=== PATIENT | male | born 1955 | race Caucasian/White ===

== ENCOUNTER 2020-11-05 15:39 | Emergency (ER) | payer OTHER, SELFPAY ==
[2020-11-05] VITALS (32 sets, daily range): BP systolic 122–143; BP diastolic 72–100; PULSE 63–82; RESP 14–28; TEMP 36.8; O2SAT 92–97
--- NOTE | ~2020-11-05 | CT_ITS ---
EXAMINATION: CTA chest PE protocol DATE: 11/05/2020 17:46 INDICATION: Chest pain and shortness of breath, COVID 19 positive TECHNIQUE: Computed tomography angiography (CTA) of the chest was performed with 100 mL Omnipaque-350 intravenous contrast timed to evaluate the pulmonary arteries. Coronal maximum intensity projection 3D-reconstructions were created by the technologist. The dose-length product (DLP) was 733.02 mGy-cm. Automated exposure control and iterative reconstruction technique were employed. COMPARISON: None. FINDINGS: The pulmonary arteries are well-opacified. No pulmonary embolism is identified. There are d iffuse groundglass opacities involving all lobes of the lungs. The heart size is normal. There is marcus ateral hilar and mediastinal lymphadenopathy. No pleural effusion or pneumothorax is identified. Ther e is moderate thoracic spondylosis. Cysts of the partially imaged kidneys measure up to 5.3 cm on the left. IMPRESSION: 1. No pulmonary embolism. 2. Widespread groundglass opacities involving all lobes of the lungs, most consistent with COVID 19 p neumonia. 3. Mediastinal and bilateral hilar lymphadenopathy, likely reactive. Reviewed, dictated and finalized at location A. [employer] IMPRESSION: 1. No pulmonary embolism. 2. Widespread groundglass opacities involving all lobes of the lungs, most cons istent with COVID 19 pneumonia. 3. Mediastinal and bilateral hilar lymphadenopathy, likely reactive.
[2020-11-05] MEDS: KETOROLAC 30 MG/ML VIAL (*BKC) IV PUSH (16:21)
[2020-11-05 16:45] LABS: Basophils Percent Auto 0.2 % (0.2-1.2); Eosinophils Percent Auto 0.5 % (0-4.4); Hematocrit 42.8 % (42.0-52.0); Hemoglobin 14.6 g/dL (14.0-18.0); Immature Granulocyte Absolute 0.04 K/mm3 (0.00-0.031); Immature Granulocyte Percent A 0.7 % (0-0.5); Lymphocytes Absolute Auto 0.88 K/mm3 (0.9-3.2); Lymphocytes Percent Auto 14.5 % (18.3-44.2); Mean Corpuscular HGB Conc 34.1 g/dl (32-36); Mean Corpuscular Hemoglobin 26.8 pg (26-34); Mean Corpuscular Volume 78.5 fl (80-100); Mean Platelet Volume 9.2 fl (7.4-10.4); Monocytes Absolute Auto 0.4 K/mm3 (0.1-0.6); Monocytes Percent Auto 6.4 % (2.6-8.5); Neutrophils Absolute Auto 4.7 K/mm3 (1.3-6.7); Neutrophils Percent Auto 77.7 % (45.5-73.1); Platelet Count Result 279 k/mm3 (150-375); Red Blood Count 5.45 M/mm3 (4.6-6.20); Red Cell Distribution Width 14.1 % (11.5-14.5); White Blood Count 6.1 K/mm3 (4.5-10.0)
[2020-11-05 17:01] LABS: Anion Gap 10 mmol/L (8-16); Blood Urea Nitrogen 13 mg/dL (9-20); Calcium 8.5 mg/dL (8.4-10.2); Carbon Dioxide 31 mmol/L (22-30); Chloride 95 mmol/L (98-107); Estimated CRCL calculation 93 ml/min; Estimated Glomerular Filt Rate > 60; Glucose 134 mg/dL (75-110); Potassium 2.7 mmol/L (3.4-5.0); Sodium 136 mmol/L (137-145)
[2020-11-05] MEDS: POTASSIUM CHLORIDE 20 MEQ PACKET (FOR LIQUID) 40 MEQ PO (17:22)
--- NOTE | 2020-11-05 18:25 | PC.NURSE ---
PT AMBULATED AND MAINTAINED O2 SATURATION OF 95-94%. EDP NOTIFIED.
--- NOTE | 2020-11-05 18:48 | ED.GENADULT ---
HPI - General Adult General Chief complaint: Shortness of Breath/Dyspnea Stated complaint: covid +, chest pain Time Seen by Provider: 11/05/20 15:50 History of Present Illness HPI narrative: Patient is a 64-year-old male who presents to the ER with complains of anterior chest pain intermittent and worsening over the last 2 days. He been seen for similar symptoms on 11/01/2020 at [facility]. At that time he was diagnosed with a Covid pneumonia and given an albuterol inhaler. He has been using this at home but does not help his discomfort. He does report he had coughed up some blood-tinged sputum today. He is not having fevers or chills. He is not particularly short of breath just has frequent cough and chest discomfort. Related Data Allergies Allergy/AdvReac Type Severity Reaction Status Date / Time lisinopril Allergy Unknown RASH Unverified 07/18/15 08:33 poison rigoberto extract Allergy Unknown Rash Verified 10/31/15 08:25 Review of Systems Review of Systems: All systems reviewed & are unremarkable except as noted in HPI and below Constitutional: Constitutional: Denies chills, Denies fever(s) and Denies weakness ENT: Denies nasal congestion and Denies sore throat Cardiovascular: Cardiovascular: Reports chest pain, Denies rapid heart rate and Denies radiating jaw, neck or arm pain Respiratory: Respiratory: Reports cough, Denies dyspnea and Denies wheezing Comments: Hemoptysis Gastrointestinal: Gastrointestinal: Denies abdominal pain, Denies nausea and Denies vomiting Musculoskeletal: Musculoskeletal: Denies back pain and Denies muscle cramps PMFSH Past Medical History Medical History (Updated 11/05/20 @ 19:40 by Tani Chakraborty MD) BPH (benign prostatic hyperplasia) Hypertension Surgical History Surgical History (Updated 11/05/20 @ 18:54 by Tani Chakraborty MD) Hx of tonsillectomy Social History Social History (Updated 11/05/20 @ 18:54 by Tani Chakraborty MD) Smoking status: Never smoker Exam Narrative: Exam Narrative: GENERAL: Well-appearing, well-nourished, and in no acute distress. HEAD: Normocephalic, atraumatic. CHEST: Clear to auscultation. No respiratory distress. HEART: Regular rate and rhythm. Normal peripheral pulses. EXTREMITIES: Normal range of motion. No edema. SKIN: Warm, dry, no rash. NEURO: Alert and oriented x3. PSYCH: Normal mood and affect. Course Course Emergency Course: Patient reports symptoms resolved after Toradol. He is also taken the potassium supplementation. Informed of his results. He has been ambulatory without any hypoxia. He is in no distress. Will attempt to contact his PCP. Reevaluation(s) Reevaluation #1: Discussed with Dr. Dietrich the patients PCP. WIll repeat K+ outpatient. D/c Date: 11/05/20 Time: 19:38 Vital Signs Vital signs: Vital Signs Temperature 98.2 F 11/05/20 15:49 Pulse Rate 70 11/05/20 15:49 Respiratory Rate 18 11/05/20 15:49 Blood Pressure 143/77 H 11/05/20 15:49 Pulse Oximetry 94 11/05/20 15:49 Temperature 98.2 F 11/05/20 15:49 Pulse Rate 68 11/05/20 19:15 Respiratory Rate 20 11/05/20 19:15 Blood Pressure 128/86 11/05/20 19:01 Pulse Oximetry 92 11/05/20 19:15 Medical Decision Making Vital Signs Vital Signs: Vital Signs Temperature 98.2 F 11/05/20 15:49 Pulse Rate 70 11/05/20 15:49 Respiratory Rate 18 11/05/20 15:49 Blood Pressure 143/77 H 11/05/20 15:49 Pulse Oximetry 94 11/05/20 15:49 Temperature 98.2 F 11/05/20 15:49 Pulse Rate 68 11/05/20 19:15 Respiratory Rate 20 11/05/20 19:15 Blood Pressure 128/86 11/05/20 19:01 Pulse Oximetry 92 11/05/20 19:15 Lab Data Result diagrams: 11/05/20 16:34 11/05/20 16:34 Labs: Lab Results 11/05/20 11/05/20 Range/Units 16:34 16:34 WBC 6.1 (4.5-10.0) K/mm3 RBC 5.45 (4.6-6.20) M/mm3 Hgb 14.6 (14.0-18.0) g/dL Hct 42.8 (42.0-52.0) % MCV 78.5 L (80-100) fl MCH 26.8
== END 2020-11-05 20:48 | disposition home or self-care (01) ==
PROVIDERS: Emergency Provider Emergency Medicine
DX: U07.1 COVID-19 (principal); J12.89 Other viral pneumonia; E87.6 Hypokalemia; N40.0 Benign prostatic hyperplasia without lower urinary tract symptoms; I10 Essential (primary) hypertension
CPT/HCPCS: 36415; 71275; 80048; 85025; 96374; 99284; A9270; J1885; Q9967

== ENCOUNTER 2020-11-17 10:42 | Emergency (ER) | payer OTHER, SELFPAY ==
[2020-11-17] VITALS (22 sets, daily range): BP systolic 141–162; BP diastolic 84–102; PULSE 77–95; RESP 16–23; TEMP 37.1; O2SAT 93–99
--- NOTE | ~2020-11-17 | XR_ITS ---
EXAMINATION: XR chest 1V portable EXAM DATE: 11/17/2020 11:26 INDICATION: Chest pain, cough and shortness of breath. TECHNIQUE: Portable AP frontal chest x-ray was obtained. Correlation is made to director business systems image from pul onary CT 11/05/2020. FINDINGS: There is moderate amount of patchy bilateral ill-defined airspace disease consistent with C OVID pneumonia. Probably more confluence compared to 11/05. No pneumothorax or pleural effusion. Card iomediastinal silhouette is normal. There are no osseous abnormalities identified. IMPRESSION: Moderate amount of bilateral COVID pneumonia. Reviewed, dictated and finalized at location B. GER MANAGEMENT
--- NOTE | 2020-11-17 10:54 | ECG_ITS ---
Measurements Intervals [place] Rate: 89 P: 38 MT: 155 QRS: -26 QRSD: 99 T: 26 QT: 363 QTc: 443 Interpretive Statements SINUS RHYTHM INCOMPLETE RIGHT BUNDLE BRANCH BLOCK VOLTAGE CRITERIA FOR LVH BORDERLINE R WAVE PROGRESSION, ANTERIOR LEADS BORDERLINE T WAVE ABNORMALITY- INF/HIGH LAT LEADS BASELINE ARTIFACT- I, III BORDERLINE ECG Electronically Signed On 11-17-2020 12:17:09 [employer] by Raudel Santamaria D.O.
[2020-11-17 11:03] LABS: Basophils Percent Auto 0.4 % (0.2-1.2); Eosinophils Absolute Auto 0.1 K/mm3 (0-0.3); Hematocrit 38.9 % (42.0-52.0); Hemoglobin 12.7 g/dL (14.0-18.0); Immature Granulocyte Absolute 0.04 K/mm3 (0.00-0.031); Immature Granulocyte Percent A 0.4 % (0-0.5); Lymphocytes Absolute Auto 1.07 K/mm3 (0.9-3.2); Lymphocytes Percent Auto 10.6 % (18.3-44.2); Mean Corpuscular HGB Conc 32.6 g/dl (32-36); Mean Corpuscular Hemoglobin 26.7 pg (26-34); Mean Corpuscular Volume 81.7 fl (80-100); Mean Platelet Volume 8.6 fl (7.4-10.4); Monocytes Percent Auto 9.4 % (2.6-8.5); Neutrophils Absolute Auto 7.9 K/mm3 (1.3-6.7); Neutrophils Percent Auto 78.2 % (45.5-73.1); Platelet Count Result 309 k/mm3 (150-375); Red Blood Count 4.76 M/mm3 (4.6-6.20); Red Cell Distribution Width 14.3 % (11.5-14.5); White Blood Count 10.1 K/mm3 (4.5-10.0)
--- NOTE | 2020-11-17 11:08 | ED.CHESTPAIN ---
HPI - Chest Pain General Chief Complaint: Chest Pain Stated Complaint: Feels tightness in chest Time Seen by Provider: 11/17/20 11:07 History of Present Illness HPI narrative: 65 yo male w/ h/o BPH presents to the ED for SOB and chest pressure. He has been feeling sick since before new years. He was having fever, cough, SOB, nausea. He tested positive for COVID-19 and was subsequently seen in the ED on 11/05/2020. At that time he had a CTA of the chest showing no PE, but COVID pneumonia. HE also had low potassium. He was given KCL and naproxen and was feeling better, but now feels that his symptoms have returned. Related Data Allergies Allergy/AdvReac Type Severity Reaction Status Date / Time lisinopril Allergy Unknown RASH Verified 11/17/20 11:25 poison rigoberto extract Allergy Unknown Rash Verified 10/31/15 08:25 Review of Systems Review of Systems: All systems reviewed & are unremarkable except as noted in HPI and below Constitutional: Constitutional: Denies fever(s) ENT: Denies sore throat Cardiovascular: Cardiovascular: Reports chest pain Respiratory: Respiratory: Reports chest congestion, Reports cough and Reports dyspnea Gastrointestinal: Gastrointestinal: Denies abdominal pain and Denies nausea Neurologic: Denies confusion, Denies dizziness and Denies weakness [facility] Past Medical History Medical History BPH (benign prostatic hyperplasia) Hypertension Surgical History Surgical History Hx of tonsillectomy Social History Social History Smoking status: Never smoker Exam Const: General: healthy appearing, no acute distress and alert Orientation/consciousness: patient oriented x3 HENMT: Head: normal to inspection Neck: Neck: normal visual inspection and no lymphadenopathy Chest: Chest palpation & inspection: no tenderness Resp: Effort & Inspection: normal respiratory effort Auscultation: crackles bilateral in the lower lung [place], no rales, no rhonchi and no wheezes Cardio: Jugular venous distension: no JVD Rate: regular rate Rhythm: regular rhythm Heart sounds: no murmurs GI: Inspection: non-distended GI Palp: Yes Soft to palpation and No Tenderness to palpation present (GI) Skin: General skin exam: normal color Neuro: General: patient oriented x3 and moves all extremities Speech: normal speech Extrem: General: no edema Psych: Appearance: well kempt Affect: normal affect Course Vital Signs Vital signs: Vital Signs Temperature 37.1 C 11/17/20 10:47 Pulse Rate 88 11/17/20 10:47 Respiratory Rate 20 11/17/20 10:47 Blood Pressure 162/102 H 11/17/20 10:47 Pulse Oximetry 99 11/17/20 10:47 Temperature 37.1 C 11/17/20 10:47 Pulse Rate 81 11/17/20 13:16 Respiratory Rate 22 H 11/17/20 13:16 Blood Pressure 145/84 H 11/17/20 13:16 Pulse Oximetry 94 11/17/20 13:16 MDM - Chest Pain MDM Narrative Medical decision making narrative: Oxygenating well. Feeling improved after neb treatment. I will start him on dexamethasone to see if he gets some benefit from that . DDx: Pneumonia, PE, ACS Medical Records Data Attestation: I reviewed the patient's medical records. Lab Data Attestation: I reviewed the patient's lab results. Result diagrams: 11/17/20 10:56 11/17/20 10:56 Labs: Lab Results 11/17/20 11/17/20 11/17/20 Range/Units 10:56 10:56 10:56 WBC 10.1 H (4.5-10.0) K/mm3 RBC 4.76 (4.6-6.20) M/mm3 Hgb 12.7 L (14.0-18.0) g/dL Hct 38.9 L (42.0-52.0) % MCV 81.7 (80-100) fl MCH 26.7 (26-34) pg MCHC 32.6 (32-36) g/dl RDW 14.3 (11.5-14.5) % Plt Count 309 (150-375) k/mm3 MPV 8.6 (7.4-10.4) fl Immature Gran % (Auto) 0.4 (0-0.5) % Neut % (Auto) 78.2 H (45.5-73.1) % Lymph % (Auto) 10.6 L (18.3-44.2) %
[2020-11-17 11:15] LABS: Anion Gap 6 mmol/L (8-16); Blood Urea Nitrogen 18 mg/dL (9-20); Calcium 8.5 mg/dL (8.4-10.2); Carbon Dioxide 27 mmol/L (22-30); Chloride 102 mmol/L (98-107); Estimated CRCL calculation 82 ml/min; Estimated Glomerular Filt Rate > 60; Glucose 156 mg/dL (75-110); INR 1.1; Potassium 3.9 mmol/L (3.4-5.0); Prothrombin Time 14.5 Seconds (11.1-14.7); Sodium 135 mmol/L (137-145)
[2020-11-17 11:16] LABS: Partial Thromboplastin Time 32.5 SECONDS (22.3-36.8)
[2020-11-17 11:27] LABS: Troponin I < 0.012 ng/mL (0.000-0.034)
[2020-11-17] MEDS: ASPIRIN 81 MG CHEWABLE TABLET 324 MG PO (11:42)
[2020-11-17] MEDS: IPRATROPIUM BR 0.02% INH SOLN 0.5 MG/2.5 ML VIAL INHALATION (11:59)
[2020-11-17] MEDS: ALBUTEROL SULFATE NEB 2.5 MG/0.5 ML INH 5 MG INHALATION (11:59)
== END 2020-11-17 13:32 | disposition home or self-care (01) ==
PROVIDERS: Emergency Medicine; Emergency Provider Emergency Medicine; PCP Family Medicine
DX: U07.1 COVID-19 (principal); J12.82 Pneumonia due to coronavirus disease 2019; I10 Essential (primary) hypertension; N40.0 Benign prostatic hyperplasia without lower urinary tract symptoms
CPT/HCPCS: 36415; 71045; 80048; 84484; 85025; 85610; 85730; 93005; 94640; 96374; 99284; A9270; J1100

== ENCOUNTER 2021-03-02 17:37 | Emergency (ER) | payer OTHER, SELFPAY ==
--- NOTE | ~2021-03-02 | CT_ITS ---
EXAMINATION: CT abdomen pelvis w con DATE: 03/02/2021 19:11 INDICATION: Right-sided abdominal pain TECHNIQUE: Computed tomography (CT) of the abdomen and pelvis was performed with 100 mL Omnipaque-350 intravenous contrast. Automated exposure control and iterative reconstruction technique were employe d. The dose-length product was 1073.75 mGy-cm. COMPARISON: CT chest dated 11/05/2020 FINDINGS: Mild emphysema. Near-complete complete resolution of the peripheral predominant groundglass opacities previously seen throughout both lungs likely related to prior COVID pneumonia. Minimal residual atel ectasis/scarring at the bilateral lung bases. Heart size is normal. No pericardial or pleural effusio n. 1.1 cm cyst in segment IVb of the liver. Gallbladder, spleen, pancreas and bilateral adrenal gland s are normal. Bilateral renal cysts, the largest on the left measuring 6.0 cm in maximal diameter. Mi ld right hydroureteronephrosis with mild urothelial enhancement along the right ureter. There is a li pepper obstructing 2-3 mm stone at the right ureterovesicular junction. Diffuse wall thickening of the partially decompressed bladder. Suggestion of prior transurethral prostatectomy defect at the bladder outlet. Bowels including the appendix are normal. No free intraperitoneal gas or fluid. No pathologi zeinab enlarged abdominal or pelvic lymphadenopathy. Moderate to severe lumbar spondylosis with 5 mm a nterolisthesis L4 on L5 and 2-3 mm retrolisthesis L1 on L2 and L2 on L3. Moderate lower thoracic spon dylosis. 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 IMPRESSION: 1. Obstructing 2-3 mm stone at the right ureterovesicular junction with mild right hydroureteronephro sis. There is also some urothelial enhancement would correlate with urinalysis to exclude associated ascending urinary tract infection. 2. Diffuse bladder wall thickening which could be due to chronic outlet obstruction or cystitis eithe r acute or chronic. Again would correlate with urinalysis. Reviewed, dictated and finalized at location A. IMPRESSION: 1. Obstructing 2-3 mm stone at the right ureterovesicular junction with mild ri ght hydroureteronephrosis. There is also some urothelial enhancement would kristal elate with urinalysis to exclude associated ascending urinary tract infection. 2. Diffuse bladder wall thickening which could be due to chronic outlet obstruc tion or cystitis either acute or chronic. Again would correlate with urinalysis .
[2021-03-02 17:39] VITALS: BP 152/98; PULSE 55; RESP 18; TEMP 36.5; O2SAT 97
[2021-03-02 17:50] LABS: Basophils Absolute Auto 0.1 K/mm3 (0.0-0.1); Basophils Percent Auto 0.6 % (0.2-1.2); Eosinophils Absolute Auto 0.3 K/mm3 (0-0.3); Hemoglobin 14.2 g/dL (14.0-18.0); Immature Granulocyte Absolute 0.01 K/mm3 (0.00-0.031); Immature Granulocyte Percent A 0.1 % (0-0.5); Lymphocytes Absolute Auto 2.87 K/mm3 (0.9-3.2); Lymphocytes Percent Auto 34.5 % (18.3-44.2); Mean Corpuscular HGB Conc 32.3 g/dl (32-36); Mean Corpuscular Hemoglobin 26.3 pg (26-34); Mean Corpuscular Volume 81.6 fl (80-100); Mean Platelet Volume 8.5 fl (7.4-10.4); Monocytes Absolute Auto 0.6 K/mm3 (0.1-0.6); Monocytes Percent Auto 7.5 % (2.6-8.5); Neutrophils Absolute Auto 4.4 K/mm3 (1.3-6.7); Neutrophils Percent Auto 53.3 % (45.5-73.1); Platelet Count Result 247 k/mm3 (150-375); Red Blood Count 5.39 M/mm3 (4.6-6.20); Red Cell Distribution Width 14.3 % (11.5-14.5); White Blood Count 8.3 K/mm3 (4.5-10.0)
--- NOTE | 2021-03-02 17:55 | PC.NURSE ---
attempted to call to let her know pt is in a room in the ER. Also looked for her sitting outside - no where to be found.
[2021-03-02 17:59] LABS: Alanine Aminotransferase 14 U/L (4-50); Albumin Level 4.5 g/dL (3.5-5.1); Alkaline Phosphatase 64 U/L (38-126); Anion Gap 6 mmol/L (8-16); Aspartate Amino Transferase 23 U/L (17-59); Bilirubin,Total 0.6 mg/dL (0.2-1.3); Blood Urea Nitrogen 28 mg/dL (9-20); Calcium 9.2 mg/dL (8.4-10.2); Carbon Dioxide 31 mmol/L (22-30); Chloride 103 mmol/L (98-107); Estimated CRCL calculation 60 ml/min; Estimated Glomerular Filt Rate 51; Glucose 139 mg/dL (75-110); Lipase 115 U/L (23-300); Potassium 3.8 mmol/L (3.4-5.0); Sodium 140 mmol/L (137-145)
--- NOTE | 2021-03-02 18:32 | ED.ABDPAIN ---
HPI - Abdominal Pain General Chief Complaint: Abdominal Pain Stated Complaint: right sided pain Time Seen by Provider: 03/02/21 18:32 Source: patient and family Mode of arrival: ambulatory Limitations: no limitations History of Present Illness HPI narrative: Patient is 65 years old white female who presented to the ED with sudden onset of pain at the right lower quadrant. The started 2-hour prior to arrival to the emergency room. Patient denies any fever, chills, nausea, vomiting, radiation of pain or similar pain. Patient also denies any history of abdominal surgery. History of prostatic enlargement. Patient does not smoke or drink or uses marijuana. Related Data Allergies Allergy/AdvReac Type Severity Reaction Status Date / Time lisinopril Allergy Unknown RASH Verified 03/02/21 17:41 poison rigoberto extract Allergy Unknown Rash Verified 03/02/21 17:41 Review of Systems Review of Systems: Narrative: CONSTITUTIONAL: Denies fever, chills, or sweats. EYES: Denies visual changes, redness, or discharge. ENT: Denies rhinorrhea, congestion, sore throat, or otalgia. CARDIOVASCULAR: Denies chest pain, palpitations, or edema. RESPIRATORY: Denies cough or dyspnea. GASTROINTESTINAL: Denies abdominal pain, nausea, vomiting, or diarrhea. GENITOURINARY: Denies dysuria or hematuria. SKIN: Denies rash or itching. MUSCULOSKELETAL: Denies back pain, joint pain, or myalgia. NEUROLOGIC: Denies headache, numbness, or weakness. PSYCHIATRIC: Denies anxiety or depression. PMFSH Past Medical History Medical History BPH (benign prostatic hyperplasia) Hypertension Surgical History Surgical History Hx of tonsillectomy Social History Social History Smoking status: Never smoker Gender identity (if verbalized by the patient): Male Exam Narrative: Exam Narrative: General appearance: Well-developed, well-nourished Skin: Normal color Head: Normocephalic, nontraumatic Eyes: Clear conjunctiva ENT: Oropharynx normal, ears normal, nose normal Neck: Supple, nontender Chest and respiratory: Airway patent, no respiratory distress, no accessory muscle use Heart: Regular rate/rhythm Abdomen: Soft, nontender, no organomegaly, quiet bowel sounds Vascular: Normal peripheral pulses, normal capillary refill. Musculoskeletal: Normal range of motion, nontender back Neurologic: Alert and oriented ?3, BUILDING CERTIFIER is normal as tested, no gross motor deficit Course Course Emergency Course: Stable, improving Consultations Consultation #1: Dr. Banerjee. Patient can go home, call office tomorrow for appointment Monday. Date: 03/02/21 Time: 20:02 Vital Signs Vital signs: Vital Signs Temperature 36.5 C 03/02/21 17:39 Pulse Rate 55 L 03/02/21 17:39 Respiratory Rate 18 03/02/21 17:39 Blood Pressure 152/98 H 03/02/21 17:39 Pulse Oximetry 97 03/02/21 17:39 Temperature 36.5 C 03/02/21 17:39 Pulse Rate 71 03/02/21 18:44 Respiratory Rate 18 03/02/21 18:44 Blood Pressure 150/98 H 03/02/21 18:44 Pulse Oximetry 97 03/02/21 18:44 MDM - Abdominal Pain MDM Narrative Medical decision making narrative: Right lower quadrant pain. My differential diagnosis as below. Labs, CT abdomen and pelvis with IV contrast, IV fluid ordered. Patient declined to take any pain medication at this moment, patient is pain-free. Differential Diagnosis Differential diagnosis: Likely abdominal pain, acute appendicitis, calculus of kidney, constipation and diverticulitis Lab Data Result diagrams: 03/02/21 17:44
[2021-03-02 18:44] VITALS: BP 150/98; PULSE 71; RESP 18; O2SAT 97
[2021-03-02] MEDS: SODIUM CHLORIDE 0.9% IV 1,000 ML 999 ML IV CONT (18:44)
[2021-03-02 19:09] LABS: Add Urine Microscopic? YES; Appearance Urine Cloudy (Clear); Bacteria Urine Trace /hpf; Bilirubin Urine Negative (Negative); Blood Urine 3+ (Negative); Color Urine Yellow (Yellow); Glucose Urine UA Negative (Negative); Ketones Urine Negative (Negative); Leukocyte Esterase Ur 2+ LEU/UL (Negative); Mucus Urine Few /lpf; Nitrate Urine Negative (Negative); Protein Urine 2+ mg/dL (Negative); RBC Urine >75 /hpf (0-2); Squamous Epithelial Cell Urine Rare /hpf (Few); Urobilinogen Urine Negative mg/dL (<2.0); WBC Urine 51-75 /hpf
--- NOTE | 2021-03-02 20:27 | PC.NURSE ---
Per EDP Otilia, no second liter of fluids needed.
[2021-03-02 20:31] VITALS: BP 150/98; PULSE 66; RESP 14; O2SAT 97
== END 2021-03-02 20:30 | disposition home or self-care (01) ==
PROVIDERS: Emergency Medicine; Emergency Provider Emergency Medicine
DX: N13.2 Hydronephrosis with renal and ureteral calculous obstruction (principal); N39.0 Urinary tract infection, site not specified; E86.0 Dehydration; I10 Essential (primary) hypertension; N40.0 Benign prostatic hyperplasia without lower urinary tract symptoms
CPT/HCPCS: 36415; 74177; 80053; 81001; 83690; 85025; 87086; 96361; 96365; 99284; J0696; J7030; Q9967

== ENCOUNTER 2021-04-07 12:15 | Outpatient (CLI) | payer OTHER, SELFPAY ==
[2021-04-07 12:46] LABS: Hemoglobin 14.1 g/dL (14.0-18.0); Mean Corpuscular HGB Conc 32.8 g/dl (32-36); Mean Corpuscular Hemoglobin 26.1 pg (26-34); Mean Corpuscular Volume 79.6 fl (80-100); Mean Platelet Volume 8.8 fl (7.4-10.4); Platelet Count Result 241 k/mm3 (150-375); Red Cell Distribution Width 14.1 % (11.5-14.5); White Blood Count 5.9 K/mm3 (4.5-10.0)
[2021-04-07 12:52] LABS: Add Urine Microscopic? YES; Appearance Urine Clear (Clear); Bacteria Urine Trace /hpf; Bilirubin Urine Negative (Negative); Blood Urine Negative (Negative); Color Urine Yellow (Yellow); Glucose Urine UA Negative (Negative); Ketones Urine Negative (Negative); Leukocyte Esterase Ur 2+ LEU/UL (NEGATIVE); Mucus Urine Rare /lpf; Nitrate Urine Negative (Negative); Protein Urine 1+ mg/dL (Negative); Specific Grav Ur 1.018 (1.001-1.035); Urobilinogen Urine Negative mg/dL (<2.0); WBC Urine >75 /hpf (0-3)
[2021-04-07 12:57] LABS: Hemoglobin A1C 6.8 % (<5.7)
[2021-04-07 12:59] LABS: Alanine Aminotransferase 14 U/L (4-50); Albumin Level 4.3 g/dL (3.5-5.1); Alkaline Phosphatase 56 U/L (38-126); Anion Gap 5 mmol/L (8-16); Aspartate Amino Transferase 25 U/L (17-59); Bilirubin,Total 0.8 mg/dL (0.2-1.3); Blood Urea Nitrogen 17 mg/dL (9-20); Calcium 9.3 mg/dL (8.4-10.2); Carbon Dioxide 31 mmol/L (22-30); Chloride 105 mmol/L (98-107); Cholesterol 246 mg/dL (0-200); Estimated Glomerular Filt Rate > 60; Glucose 122 mg/dL (75-110); HDL Direct 56 mg/dL; Potassium 3.6 mmol/L (3.4-5.0); Sodium 141 mmol/L (137-145); Triglycerides 159 mg/dL (<150)
[2021-04-07 13:11] LABS: LDL Cholesterol Direct 121 mg/dL
[2021-04-07 13:18] LABS: Basophils Percent Auto 0.5 % (0.2-1.2); Eosinophils Absolute Auto 0.3 K/mm3 (0-0.3); Eosinophils Percent Auto 5.2 % (0-4.4); Immature Granulocyte Absolute 0.01 K/mm3 (0.00-0.031); Immature Granulocyte Percent A 0.2 % (0-0.5); Lymphocytes Absolute Auto 2.18 K/mm3 (0.9-3.2); Lymphocytes Percent Auto 36.6 % (18.3-44.2); Monocytes Absolute Auto 0.4 K/mm3 (0.1-0.6); Monocytes Percent Auto 6.9 % (2.6-8.5); Neutrophils Percent Auto 50.6 % (45.5-73.1)
[2021-04-07 13:24] LABS: Creatinine Urine 188.5 mg/dL
[2021-04-07 13:29] LABS: MALB Creatinine Ratio 39.8 mg/g (0-30); Microalbumin Urine Random 75.1 mg/L (0-16.7)
== END 2021-04-07 12:16 | disposition home or self-care (01) ==
DX: Z00.00 Encounter for general adult medical examination without abnormal findings (principal)
CPT/HCPCS: 36415; 80053; 80061; 81001; 82043; 83036; 84443; 85025; 85027